=== PATIENT | male | born 2000 | race Caucasian/White ===

== ENCOUNTER 2020-01-03 16:13 | Emergency (ER) | payer OTHER, MEDICAID, SELFPAY ==
[2020-01-03 16:27] VITALS: BP 129/70; PULSE 87; RESP 16; TEMP 36.9; O2SAT 97; BMI 22.4
--- NOTE | 2020-01-03 16:40 | ED.WOUNDLAC ---
HPI - Wound/Laceration General Chief Complaint: Wound/Laceration Stated Complaint: hit back of his head, fall from bed Time Seen by Provider: 01/03/20 16:40 History of Present Illness HPI narrative: Otherwise healthy 19-year-old gentleman presents after this judging the edge of his bed rolling over and rolling off and likely landing on a water bottle to cause a small laceration to the left occipital area of head. There is no neck pain and there is no loss of consciousness. He has no other complaints and no other areas of tenderness Related Data Previous Rx's Medication Instructions Recorded benzonatate [Tessalon Perles] 100 mg PO TID #21 cap 01/11/16 Review of Systems Review of Systems Narrative: Pertinent positive and negative findings as per HPI Remainder of review of systems is otherwise unremarkable for Constitutional: Fevers, chills, weakness ENT: No sore throat, neck pain, ear pain CV: Chest pain, palpitations, dyspnea on exertion Respiratory: Cough, wheeze, dyspnea GI: Nausea, vomiting, diarrhea, : Dysuria, hematuria, flank pain Patient History Medical History Healthy adult (Acute) Substance Use Type: marijuana Exam Narrative Exam Narrative: General: Alert appropriate in no acute distress Respiratory: Able to speak in full sentences, no obvious respiratory distress Skin: No obvious rashes, warm and dry Neurologic: Grossly intact no obvious asymmetries or abnormalities Psych, appropriate insight and affect, cooperative Scalp: 2 cm circular partial-thickness laceration to the left posterior occiput. Clean edges and no debris in the wound. Initial Vital Signs Initial Vital Signs: Vital Signs Temperature 98.4 F 01/03/20 16:27 Pulse Rate 87 01/03/20 16:27 Respiratory Rate 16 01/03/20 16:27 Blood Pressure 129/70 01/03/20 16:27 Pulse Oximetry 97 01/03/20 16:27 Procedures Laceration Repair Left occipital: Site: scalp Side (If applicable): left Size (cm): 2 Description: linear Depth: simple, single layer Local Anesthetic: bupivacaine 0.5% Amount of anesthesia used (mL): 2 Pre-repair: wound explored Skin layer closed with: car[place]ina Number of sutures: 4 Course Vital Signs Vital signs: Vital Signs - 8 hr 01/03/20 16:27 Temperature 98.4 F Pulse Rate 87 Respiratory Rate 16 Blood Pressure 129/70 Pulse Oximetry 97 MDM - Wound/Laceration MDM Narrative Medical decision making narrative: 19-year-old gentleman with some minor late laceration to the left occiput with no other injuries or concerns. Stapled without difficulty. Safe for home discharge Discharge Plan Departure Patient Disposition: Home Clinical Impression: Laceration Instructions: DI for Laceration Repair Activity Restrictions/Additional Instructions: Thank you for coming in today The cut on the back of your head was put together with 4 carolina. Will need to come back to the ER to have the carolina removed on or about January 12. It is okay to get the wound wet but try not to rub out it and simply patted dry after shower. You do not need to keep a dressing on it. I hope you heal quickly Prescriptions: No Action benzonatate [Tessalon Perles] 100 MG capsule 100 mg PO TID Qty: 21 RF: 0
[2020-01-03 17:29] VITALS: BP 107/58; PULSE 89; RESP 18; O2SAT 99
== END 2020-01-03 17:31 | disposition home or self-care (01) ==
PROVIDERS: Emergency Provider Emergency Medicine
DX: S01.01XA Laceration without foreign body of scalp, initial encounter (principal); W06.XXXA Fall from bed, initial encounter
CPT/HCPCS: 12001; 99281; 99283

== ENCOUNTER 2022-06-18 17:36 | Emergency (ER) | payer OTHER, MEDICAID, SELFPAY ==
[2022-06-18] VITALS (7 sets, daily range): BP systolic 108–123; BP diastolic 59–64; PULSE 64–91; RESP 16–18; TEMP 36.8; O2SAT 97–100; BMI 24.4
--- NOTE | 2022-06-18 19:00 | DI.CT.S_ITS ---
PROCEDURE: CT ABDOMEN PELVIS W CON INDICATIONS: ?appy TECHNIQUE: After the administration of IV contrast, axial sections were acquired from the lung bases to the pubic symphysis. Coronal and sagittal reformats were performed. For radiation dose reduction, the following was used: automated exposure control, adjustment of mA and/or kV according to patient size. COMPARISON: None. FINDINGS: Image quality: Excellent. Lung bases: Unremarkable. Heart: No significant findings. ABDOMEN: Liver: Liver is enlarged measuring 19.1 cm with steatosis. Gallbladder: Unremarkable. Biliary ducts: Unremarkable. Pancreas: Unremarkable. Spleen: Unremarkable. Adrenal Glands: Unremarkable. Kidneys and Ureters: Unremarkable. Stomach and Bowel: Stomach, small bowel loops, and colon are nonobstructive. The appendix is not definitively identified. There is no right lower quadrant inflammatory change. The ascending colon is slightly thickened. However, it is incompletely distended. Peritoneum: No abnormal intraperitoneal fluid. No free air. Ventral Wall: No hernia. Abdominal Nodes: No retroperitoneal or mesenteric adenopathy by size criteria. Vessels: Aorta and inferior vena cava are normal in size. PELVIS: Pelvic Organs: Unremarkable. Bladder: Unremarkable. Pelvic Nodes: No enlarged lymph nodes. Miscellaneous: No inguinal hernias are seen. Bones: Unremarkable. IMPRESSION: Appendix is not visualized. However, no right lower quadrant inflammatory changes identified. Mild appearance of thickening within the ascending colon suspected to be secondary to incomplete distention, given no surrounding inflammatory change. Dictated by: Martita Westfall M.D. on 06/18/2022 at 19:46 Approved by: Martita Westfall M.D. on 06/18/2022 at 19:49
[2022-06-18] MEDS: KETOROLAC 30 MG/ML VIAL 15 MG IV (19:10)
[2022-06-18] MEDS: ONDANSETRON 4 MG/2 ML INJ IV (19:10)
[2022-06-18] MEDS: SODIUM CHLORIDE 0.9% 1,000 ML 1000 ML IV (19:10)
[2022-06-18 19:17] LABS: Add Manual Diff / Slide Review NO; Basophils Absolute Auto 0 /uL (0-100); Basophils Percent Auto 0.2 % (0-2); Eosinophils Absolute Auto 0 /uL (0-450); Hematocrit 42.4 % (41-53); Hemoglobin 14.6 g/dL (13.5-17.5); Lymphocytes Absolute Auto 1300 /uL (1100-4500); Lymphocytes Percent Auto 9.9 % (25-40); Mean Corpuscular HGB Conc 34.4 % (30-36); Mean Corpuscular Hemoglobin 28.7 PG (26-34); Mean Corpuscular Volume 83.5 fL (80-100); Monocytes Absolute Auto 600 /uL (0-900); Monocytes Percent Auto 4.5 % (3-14); Neutrophils Absolute Auto 11600 /uL (1500-7000); Neutrophils Percent Auto 85.4 % (50-75); Platelet Count 326 X10^3/uL (150-400); Red Blood Cell Count 5.09 X10^6/uL (4.5-5.9); Red Cell Distribution Width 13.4 % (11.6-14.8); White Blood Cell Count 13.6 X10^3/uL (4.5-11.0)
--- NOTE | 2022-06-18 19:27 | ED.NAVMDI ---
HPI - Nausea/Vomiting/Diarrhea <Dick Lynn PA-C - Last Filed: 06/18/22 20:30> General Chief complaint: Nausea/Vomiting/Diarrhea Stated complaint: throwing up/cant keep anything down/headachx1 Time Seen by Provider: 06/18/22 18:34 Source: patient Mode of arrival: Ambulatory History of Present Illness HPI Narrative: 22-year-old male with no reported past medical history presents to the ED with 1 day of nausea, vomiting, chills. Patient is accompanied by his father. Patient states that they had a super bowl constitution party at home yesterday with lots of different types of foods, patient drank some beers. Patient states that since this morning, he has been unable to tolerate any p.o., has vomited everything that he has consumed. Patient states that he also incurred a fall yesterday, however is unable to remember if he passed out. Patient endorses a headache as well as abdominal pain. Patient denies chest pain, shortness of breath, dysuria, diarrhea, constipation, lightheadedness, dizziness. Patient endorses that he might have drank more than he usually did, this morning he started off feeling like he had a hangover, however he started feeling sicker. Patient denies any abdominal surgeries. Related Data Previous Rx's Medication Instructions Recorded benzonatate 100 mg capsule 100 mg PO TID #21 caps 01/11/16 (Leonie Zuniga) ondansetron 4 mg disintegrating 4 mg PO Q8H PRN nausea and 06/18/22 tablet vomiting #14 tabs Allergies Allergy/AdvReac Type Severity Reaction Status Date / Time No Known Drug Allergies Allergy Verified 06/18/22 17:59 Review of Systems <Dick Lynn PA-C - Last Filed: 06/18/22 20:30> Review of Systems ROS Unobtainable: All systems reviewed & are unremarkable except as noted in HPI and below Constitutional Constitutional: Reports chills, Denies fatigue, Denies fever(s), Denies frequent falls, Reports headache(s), Denies lethargy and Denies weakness Eyes Eyes: Denies change in vision, Denies eye discharge, Denies irritation and Denies loss of vision ENT Ears, Nose, Mouth, and Throat: Denies change in voice, Denies dizziness, Reports headache(s), Denies neck pain, Denies sore throat and Denies throat swelling Cardiovascular Cardiovascular: Denies chest pain, Denies irregular heart rhythm, Denies lightheadedness, Denies palpitations, Denies dyspnea, Denies dyspnea on exertion and Denies orthopnea Respiratory Respiratory: Denies cough, Denies dyspnea, Denies dyspnea on exertion and Denies wheezing Gastrointestinal Gastrointestinal: Reports abdominal pain, Denies change in bowel habits, Denies diarrhea, Reports nausea and Reports vomiting Genitourinary Genitourinary: Denies hematuria, Denies flank pain, Denies urinary incontinence and Denies urinary urgency Musculoskeletal Musculoskeletal: Denies back pain, Denies muscle weakness, Denies neck pain, Denies numbness and Denies tingling Integumentary/Breasts Skin/Breast: Denies pruritus, Denies erythema, Denies rash and Denies wounds Neurologic Neurologic: Denies behavioral changes, Denies confusion, Denies dizziness, Denies frequent falls, Reports headache(s), Denies loss of vision, Denies numbness, Denies tingling and Denies weakness Psychiatric Psychiatric: Denies anxiety, Denies behavioral changes, Denies confusion, Denies depression, Denies homicidal ideation and Denies suicidal ideation Endocrine Endocrine: Denies fatigue, Denies flushing and Denies palpitations Hematologic/Lymphatic Hematologic/Lymphatic: Denies easy bruising Allergic/Immunologic Allergic/Immunologic: Denies urticaria, Denies throat swelling and Denies wheezing Patient History <Dick Lynn PA-C - Last Filed: 06/18/22 20:30> Medical History (Updated 06/18/22 @ 20:24 by Dick Lynn PA-C) Healthy adult Social History Smoking Status: Never smoker Smoking Status: Never smoker alcohol intake frequency: a few times a week Alcohol type: beer Substance Use Type: marijuana Exam <Dick Lynn PA-C - Last Filed: 06/18/22 20:30> Narrative Exam Narrative: Const General:?cooperative, healthy appearing; rigoring on exam HENMT Head:?normal to inspection Ears:?hearing grossly normal bilaterally Nose:?external nose normal Face and sinus:?normal facial exam and sinuses nontender Mouth:?oral mucosae normal Throat:?posterior oropharynx normal Eyes General:?appearance normal, both eyes and all related structures Neck Neck:?normal visual inspection and no lymphadenopathy noted Resp Effort & Inspection:?normal respiratory effort Auscultation:?clear to auscultation bilaterally Cardio Rate:?regular rate Rhythm:?regular rhythm GI Abdomen is soft, nondistended. Abdomen is tender to palpation in the right lower quadrant. There is no CVA tenderness. Neuro General:?patient alert, patient awake and patient oriented x3; PERRLA; CN 1 through 12 intact bilaterally Initial Vital Signs Initial Vital Signs: Vital Signs Temperature 98.3 F 06/18/22 17:59 Pulse Rate 88 06/18/22 17:59 Respiratory Rate 18 06/18/22 17:59 Blood Pressure 123/61 06/18/22 17:59 Pulse Oximetry 98 06/18/22 17:59 Oxygen Delivery Method 06/18/22 17:59 <Ephraim Pereira DO - Last Filed: 06/18/22 21:54> Initial Vital Signs Initial Vital Signs: Vital Signs Temperature 98.3 F 06/18/22 17:59 Pulse Rate 88 06/18/22 17:59 Respiratory Rate 18 06/18/22 17:59 Blood Pressure 123/61 06/18/22 17:59 Pulse Oximetry 98 06/18/22 17:59 Oxygen Delivery Method 06/18/22 17:59 Course <Dick Lynn PA-C - Last Filed: 06/18/22 20:30> Orders Ordered: ED Orders 06/18/22 19:00 CT abdomen pelvis w con Stat CBC Auto Diff [Complete Blood Count AUTO DIFF] Stat CMP [Comprehensive Metabolic Panel] Stat Ethanol (ETOH) Stat Lipase Stat PT [Prothrombin Time INR] Stat PTT [Partial Thromboplastin Time] Stat 06/18/22 20:06 Urine Microscopic Stat Discontinued Medications Sodium Chloride (Normal Saline 0.9%) 1,000 mls @ 1,000 mls/hr IV BOLUS ONE Stop: 06/18/22 19:54 Last Infusion: 06/18/22 20:06 Dose: 0 mls/hr Documented By: Admin: 06/18/22 19:10 Dose: 1,000 mls/hr Documented By: AT Ketorolac Tromethamine (Ketorolac 30 Mg/Ml Vial) 15 mg IV NOW ONE Stop: 06/18/22 18:56 Last Admin: 06/18/22 19:10 Dose: 15 mg Documented By: AT Ondansetron HCl (Ondansetron 4 Mg/2 Ml Inj) 4 mg IV NOW ONE Stop: 06/18/22 18:56 Last Admin: 06/18/22 19:10 Dose: 4 mg Documented By: AT Vital Signs Vital signs: Vital Signs - 8 hr 06/18/22 17:59 06/18/22 19:20 06/18/22 19:18 Temperature 98.3 F Pulse Rate 88 86 89 Respiratory Rate 18 18 18 Blood Pressure 123/61 116/59 L 116/59 L Pulse Oximetry 98 99 100 Oxygen Delivery Method Room Air Room Air 06/18/22 19:36 06/18/22 20:00 06/18/22 20:03 Temperature Pulse Rate 64 86 Respiratory Rate Blood Pressure 108/64 Pulse Oximetry 97 100 Oxygen Delivery Method 06/18/22 20:03 06/18/22 20:28 06/18/22 20:28 Temperature Pulse Rate 91 H 86 Respiratory Rate 16 Blood Pressure 111/59 L Pulse Oximetry 98 98 Oxygen Delivery Method Room Air <Ephraim Pereira DO - Last Filed: 06/18/22 21:54> Orders Ordered: ED Orders 06/18/22 19:00 CT abdomen pelvis w con Stat CBC Auto Diff [Complete Blood Count AUTO DIFF] Stat CMP [Comprehensive Metabolic Panel] Stat Ethanol (ETOH) Stat Lipase Stat PT [Prothrombin Time INR] Stat PTT [Partial Thromboplastin Time] Stat 06/18/22 20:06 Urine Microscopic Stat Discontinued Medications Sodium Chloride (Normal Saline 0.9%) 1,000 mls @ 1,000 mls/hr IV BOLUS ONE Stop: 06/18/22 19:54 Last Infusion: 06/18/22 20:06 Dose: 0 mls/hr Documented By: Admin: 06/18/22 19:10 Dose: 1,000 mls/hr Documented By: AT Ketorolac Tromethamine (Ketorolac 30 Mg/Ml Vial) 15 mg IV NOW ONE Stop: 06/18/22 18:56 Last Admin: 06/18/22 19:10 Dose: 15 mg Documented By: AT Ondansetron HCl (Ondansetron 4 Mg/2 Ml Inj) 4 mg IV NOW ONE Stop: 06/18/22 18:56 Last Admin: 06/18/22 19:10 Dose: 4 mg Documented By: AT Vital Signs Vital signs: Vital Signs - 8 hr 06/18/22 17:59 06/18/22 19:20 06/18/22 19:18 Temperature 98.3 F Pulse Rate 88 86 89 Respiratory Rate 18 18 18 Blood Pressure 123/61 116/59 L 116/59 L Pulse Oximetry 98 99 100 Oxygen Delivery Method Room Air Room Air 06/18/22 19:36 06/18/22 20:00 06/18/22 20:03 Temperature Pulse Rate 64 86 Respiratory Rate Blood Pressure 108/64 Pulse Oximetry 97 100 Oxygen Delivery Method 06/18/22 20:03 06/18/22 20:28 06/18/22 20:28 Temperature Pulse Rate 91 H 86 Respiratory Rate 16 Blood Pressure 111/59 L Pulse Oximetry 98 98 Oxygen Delivery Method Room Air MDM - Nausea/Vomiting/Diarrhea <Dick Lynn PA-C - Last Filed: 06/18/22 20:30> Lab Data 06/18/22 19:00 06/18/22 19:00 Labs: Lab Results 06/18/22 06/18/22 06/18/22 Range/Units 19:00 19:00 19:00 WBC 13.6 H (4.5-11.0) X10^3/uL RBC 5.09 (4.5-5.9) X10^6/uL Hgb 14.6 (13.5-17.5) g/dL Hct 42.4 (41-53) % MCV 83.5 (80-100) fL MCH 28.7 (26-34) PG MCHC 34.4 (30-36) % RDW 13.4 (11.6-14.8) % Plt Count 326 (150-400) X10^3/uL Neut % (Auto) 85.4 H (50-75) % Lymph % (Auto) 9.9 L (25-40) % [place] % (Auto) 4.5 (3-14) % Eos % (Auto) 0.0 L (2-4) % Baso % (Auto) 0.2 (0-2) % Neut # (Auto) 56065 H (1393-8804) /uL Lymph # (Auto) 1300 (1753-6560) /uL [place] # (Auto) 600 (0-900) /uL Eos # (Auto) 0 (0-450) /uL Baso # (Auto) 0 (0-100) /uL PT 11.4 (10.1-12.7) SECONDS INR 1.0 (0.9-1.3) APTT 28 (26-36) SECONDS Sodium 139 (137-145) mmol/L Potassium 4.4 (3.4-5.1) mmol/L Chloride 102 (98-107) mmol/L Carbon Dioxide 13 L (22-32) mmol/L BUN 11 (9-20) mg/dL Creatinine 0.70 (0.66-1.25) mg/dL Estimated GFR > 60 (>60) mL/min BUN/Creatinine Ratio 15.7 (6-22) Glucose 70 (70-100) mg/dL Calcium 10.3 H (8.4-10.2) mg/dL Total Bilirubin 0.7 (0.2-1.3) mg/dL AST 37 (17-59) IU/L ALT 31 (<50) IU/L Alkaline Phosphatase 66 (38-126) U/L Total Protein 8.8 H (6.3-8.2) g/dL Albumin 5.4 H (3.5-5.0) g/dL Globulin 3.4 (1.7-4.1) g/dL Albumin/Globulin Ratio 1.6 (1.0-2.8) Lipase 50 (23-300) U/L Urine RBC (0-5/HPF) Urine WBC (0-5/HPF) Urine Bacteria (None) Ethyl Alcohol ( - 10) mg/dL 06/18/22 06/18/22 Range/Units 19:00 20:06 WBC (4.5-11.0) X10^3/uL RBC (4.5-5.9) X10^6/uL Hgb (13.5-17.5) g/dL Hct (41-53) % MCV (80-100) fL MCH (26-34) PG MCHC (30-36) % RDW (11.6-14.8) % Plt Count (150-400) X10^3/uL Neut % (Auto) (50-75) % Lymph % (Auto) (25-40) % [place] % (Auto) (3-14) % Eos % (Auto) (2-4) % Baso % (Auto) (0-2) % Neut # (Auto) (9563-5449) /uL Lymph # (Auto) (0650-7571) /uL [place] # (Auto) (0-900) /uL Eos # (Auto) (0-450) /uL Baso # (Auto) (0-100) /uL PT (10.1-12.7) SECONDS INR (0.9-1.3) APTT (26-36) SECONDS Sodium (137-145) mmol/L Potassium (3.4-5.1) mmol/L Chloride (98-107) mmol/L Carbon Dioxide (22-32) mmol/L BUN (9-20) mg/dL Creatinine (0.66-1.25) mg/dL Estimated GFR (>60) mL/min BUN/Creatinine Ratio (6-22) Glucose (70-100) mg/dL Calcium (8.4-10.2) mg/dL Total Bilirubin (0.2-1.3) mg/dL AST (17-59) IU/L ALT (<50) IU/L Alkaline Phosphatase (38-126) U/L Total Protein (6.3-8.2) g/dL Albumin (3.5-5.0) g/dL Globulin (1.7-4.1) g/dL Albumin/Globulin Ratio (1.0-2.8) Lipase (23-300) U/L Urine RBC None seen (0-5/HPF) Urine WBC None seen (0-5/HPF) Urine Bacteria None seen (None) Ethyl Alcohol < 10 ( - 10) mg/dL Urine Dip Bedside Urine Glucose Negative Bedside Urine Bilirubin - Negative Bedside Urine Ketone +++ 80 Urine Specific [place] 1.025 Bedside Urine Occult Blood - Negative Bedside Urine pH 5.5 Bedside Urine Protein +/- 15 Bedside Urine Urobilinogen - Negative Bedside Urine Nitrite - Negative Bedside Urine Leukocytes - Negative Esterase MDM Narrative Medical decision making narrative: 22-year-old male with no reported past medical history presents to the ED with 1 day of nausea, vomiting, chills. Concern for appendicitis versus dehydration versus metabolic derangement versus gastroenteritis versus other intra-abdominal pathology versus concussion versus alcohol intoxication versus other. Physical exam is significant for right lower quadrant tenderness. Will obtain labs, UA, ethanol, CT abdomen pelvis. Will treat symptoms with IV fluids, Zofran, ketorolac. Will reassess. Patient's symptoms significantly improved with medications and IV fluids. The appendix was not visualized on CT, however no right lower quadrant inflammatory changes were identified. There was some mild appearance of thickening within the ascending colon suspected to be secondary to incomplete distention, given no surrounding inflammatory change. UA was negative for UTI. WBC mildly elevated to 13.6 likely secondary to inflammation. Findings were discussed with patient and patient's father. They agree to return to the ED if patient's abdominal pain worsens, he has fever, chills, is vomiting uncontrollably. Recommend continued hydration, Zofran as needed. Medical records reviewed: Yes <Ephraim Pereira, - Last Filed: 06/18/22 21:54> Lab Data Labs: Lab Results 06/18/22 06/18/22 06/18/22 Range/Units 19:00 19:00 19:00 WBC 13.6 H (4.5-11.0) X10^3/uL RBC 5.09 (4.5-5.9) X10^6/uL Hgb 14.6 (13.5-17.5) g/dL Hct 42.4 (41-53) % MCV 83.5 (80-100) fL MCH 28.7 (26-34) PG MCHC 34.4 (30-36) % RDW 13.4 (11.6-14.8) % Plt Count 326 (150-400) X10^3/uL Neut % (Auto) 85.4 H (50-75) % Lymph % (Auto) 9.9 L (25-40) % [place] % (Auto) 4.5 (3-14) % Eos % (Auto) 0.0 L (2-4) % Baso % (Auto) 0.2 (0-2) % Neut # (Auto) 67205 H (6507-6461) /uL Lymph # (Auto) 1300 (1095-4665) /uL [place] # (Auto) 600 (0-900) /uL Eos # (Auto) 0 (0-450) /uL Baso # (Auto) 0 (0-100) /uL PT 11.4 (10.1-12.7) SECONDS INR 1.0 (0.9-1.3) APTT 28 (26-36) SECONDS Sodium 139 (137-145) mmol/L Potassium 4.4 (3.4-5.1) mmol/L Chloride 102 (98-107) mmol/L Carbon Dioxide 13 L (22-32) mmol/L BUN 11 (9-20) mg/dL Creatinine 0.70 (0.66-1.25) mg/dL Estimated GFR > 60 (>60) mL/min BUN/Creatinine Ratio 15.7 (6-22) Glucose 70 (70-100) mg/dL Calcium 10.3 H (8.4-10.2) mg/dL Total Bilirubin 0.7 (0.2-1.3) mg/dL AST 37 (17-59) IU/L ALT 31 (<50) IU/L Alkaline Phosphatase 66 (38-126) U/L Total Protein 8.8 H (6.3-8.2) g/dL Albumin 5.4 H (3.5-5.0) g/dL Globulin 3.4 (1.7-4.1) g/dL Albumin/Globulin Ratio 1.6 (1.0-2.8) Lipase 50 (23-300) U/L Urine RBC (0-5/HPF) Urine WBC (0-5/HPF) Urine Bacteria (None) Ethyl Alcohol ( - 10) mg/dL 06/18/22 06/18/22 Range/Units 19:00 20:06 WBC (4.5-11.0) X10^3/uL RBC (4.5-5.9) X10^6/uL Hgb (13.5-17.5) g/dL Hct (41-53) % MCV (80-100) fL MCH (26-34) PG MCHC (30-36) % RDW (11.6-14.8) % Plt Count (150-400) X10^3/uL Neut % (Auto) (50-75) % Lymph % (Auto) (25-40) % [place] % (Auto) (3-14) % Eos % (Auto) (2-4) % Baso % (Auto) (0-2) % Neut # (Auto) (5968-2481) /uL Lymph # (Auto) (7930-2237) /uL [place] # (Auto) (0-900) /uL Eos # (Auto) (0-450) /uL Baso # (Auto) (0-100) /uL PT (10.1-12.7) SECONDS INR (0.9-1.3) APTT (26-36) SECONDS Sodium (137-145) mmol/L Potassium (3.4-5.1) mmol/L Chloride (98-107) mmol/L Carbon Dioxide (22-32) mmol/L BUN (9-20) mg/dL Creatinine (0.66-1.25) mg/dL Estimated GFR (>60) mL/min BUN/Creatinine Ratio (6-22) Glucose (70-100) mg/dL Calcium (8.4-10.2) mg/dL Total Bilirubin (0.2-1.3) mg/dL AST (17-59) IU/L ALT (<50) IU/L Alkaline Phosphatase (38-126) U/L Total Protein (6.3-8.2) g/dL Albumin (3.5-5.0) g/dL Globulin (1.7-4.1) g/dL Albumin/Globulin Ratio (1.0-2.8) Lipase (23-300) U/L Urine RBC None seen (0-5/HPF) Urine WBC None seen (0-5/HPF) Urine Bacteria None seen (None) Ethyl Alcohol < 10 ( - 10) mg/dL Urine Dip Bedside Urine Glucose Negative Bedside Urine Bilirubin - Negative Bedside Urine Ketone +++ 80 Urine Specific [place] 1.025 Bedside Urine Occult Blood - Negative Bedside Urine pH 5.5 Bedside Urine Protein +/- 15 Bedside Urine Urobilinogen - Negative Bedside Urine Nitrite - Negative Bedside Urine Leukocytes - Negative Esterase Discharge Plan Departure Patient Disposition: Home Clinical Impression: Nausea & vomiting Instructions: Nausea and Vomiting-Adult Activity Restrictions/Additional Instructions: You were evaluated in the ED today for a headache, nausea, vomiting. Your your CT abdomen pelvis was not able to visualize the appendix, however there were no inflammatory changes identified in the region of the appendix either. Your symptoms significantly improved with IV fluids, ketorolac and Zofran. Please continue to stay well hydrated. It is possible your symptoms are due to either a gastroenteritis and/or dehydration due to a hangover. Please return to the ED if your abdominal pain worsens, you develop a fever, chills, you are uncontrollably vomiting and not able to hold down any fluids. You may take Zofran for the nausea. Prescriptions: New ondansetron 4 mg tablet,disintegrating 4 mg PO Q8H PRN (Reason: nausea and vomiting) Qty: 14 0RF No Action benzonatate [Tessalon Perles] 100 MG capsule 100 mg PO TID Qty: 21 0RF Stand Alone Forms: Patient Portal/API <Ephraim Pereira, DO - Last Filed: 06/18/22 21:54> Cosign ED Attending Cosignature Attestation: Dr Pereira Co-Sign Statement: I was available for consultation during this patient's emergency department visit. This chart is signed by myself for administrative purposes only. I did not have direct contact with this patient during this visit. They were seen independently by the APC.
[2022-06-18 19:28] LABS: Prothrombin Time 11.4 SECONDS (10.1-12.7)
[2022-06-18 19:31] LABS: PTT Partial Thromboplastin Tim 28 SECONDS (26-36)
[2022-06-18 19:35] LABS: Alanine Aminotransferase 31 IU/L (<50); Albumin 5.4 g/dL (3.5-5.0); Albumin Globulin Ratio 1.6 (1.0-2.8); Alkaline Phosphatase 66 U/L (38-126); Aspartate Aminotransferase 37 IU/L (17-59); BUN Creatinine Ratio 15.7 (6-22); Bilirubin Total 0.7 mg/dL (0.2-1.3); Blood Urea Nitrogen 11 mg/dL (9-20); Calcium 10.3 mg/dL (8.4-10.2); Carbon Dioxide 13 mmol/L (22-32); Chloride 102 mmol/L (98-107); Estimated Glomerular Filt Rate > 60 mL/min (>60); Globulin 3.4 g/dL (1.7-4.1); Glucose 70 mg/dL (70-100); HEMOLYSIS < 15 (0-50); Lipase 50 U/L (23-300); Potassium 4.4 mmol/L (3.4-5.1); Sodium 139 mmol/L (137-145); Total Protein 8.8 g/dL (6.3-8.2)
[2022-06-18 19:54] LABS: Ethanol (ETOH) < 10 mg/dL
--- NOTE | 2022-06-18 20:22 | PC.NURSE ---
Pt reports significant improvement in symptoms, Shane GILLIAM notified.
[2022-06-18 20:43] LABS: Bacteria Urine None Seen; RBC Urine None Seen (0-5/HPF); WBC Urine None Seen (0-5/HPF)
== END 2022-06-18 20:32 | disposition home or self-care (01) ==
PROVIDERS: Emergency Provider Student in an Organized Health Care Education/Training Program
DX: R11.2 Nausea with vomiting, unspecified (principal)
CPT/HCPCS: 36415; 74177; 80053; 80320; 81003; 81015; 83690; 85025; 85610; 85730; 96361; 96374; 96375; 99284; J1885; J2405; Q9967